=== PATIENT | female | born 1950 | race Caucasian/White ===

== ENCOUNTER 2022-10-25 18:03 | Emergency (ER) | payer MEDICARE, BC, SELFPAY ==
[2022-10-25 18:07] VITALS: BP 166/93; PULSE 102; RESP 14; TEMP 37.5; O2SAT 98; BMI 23.2
[2022-10-25 18:49] VITALS: BP 166/93; PULSE 102; RESP 14; TEMP 37.5
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
== END 2022-10-25 18:58 | disposition home or self-care (01) ==
LOC: ED 18:54
PROVIDERS: Emergency Provider Family Medicine
DX: F41.9 Anxiety disorder, unspecified (principal)
CPT/HCPCS: 99282; 99283